=== PATIENT | female | born 1955 | race Caucasian/White ===

== ENCOUNTER 2023-02-01 13:07 | Observation (INO) | payer MEDICARE, SELFPAY ==
[2023-02-01] VITALS (47 sets, daily range): BP systolic 110–169; BP diastolic 72–108; PULSE 71–104; RESP 13–30; TEMP 36.7; O2SAT 95–99; BMI 42.9
--- NOTE | 2023-02-01 11:52 | XACV_ITS ---
Exam Room: 2 Ht: 155 cm Wt: 104 kg BSA: 2.18 m2 Gender: Female : 1955 Any Known Allergies: No known allergies Exam Priority: Routine Procedure(s): Procedure Description: Diagnostic procedure Procedure Description: PCI procedure Procedure Description: Left Heart Catheterization Procedure Description: Left ventriculography Procedure Description: Drug Eluting Coronary Stent Procedure Description: PTCA Procedure Description: Coronary Angiography Phani SCOTT; Diagnostic Cath Status: Emergency Diagnostic Findings * Patient has been having off-and-on symptoms for about 18 hours. This included pressure in the upper chest and shortness of breath. [facility] with inferior ST segment elevation. Was transferred here. * Angiography revealed the right coronary artery to be closed just past the ostium. Once the artery was opened there was a lesion of about 80% in the midportion. Otherwise diffuse luminal irregularities. There is a 10 to 15% stenosis of the proximal first obtuse marginal branch. Otherwise the circumflex is normal. There is a 40% stenosis of the mid LAD. Otherwise the LAD is free of disease.. PCI Status: Emergency PCI LVEF Assessed: Yes Interventional Findings * A wire was placed through the occlusion. Once the artery was opened, angiography revealed a 80% stenosis in the mid vessel. This was stented first using a 3.5 x 12 mm drug-eluting stent. Attention was then turned to the occluded area. This is in the very proximal right coronary artery. This was then primarily stented with a 3.5 x 15 mm stent. The end result was excellent. Decision for PCI with Surgical Consult: No PCI for Multi-vessel Disease: No Conclusions 1. Occluded right coronary artery with stenting of the mid vessel and the proximal vessel. Otherwise no significant coronary artery disease. Minimal left ventricular dysfunction. Recommendations * Medical therapy. Interventional RX Recommendation: PCI w/o planned CABG Diagnostic RX Recommendation: PCI w/o planned CABG Anticoagulation: Heparin Ventriculography Ejection Fraction: 55.0 % Pressures Phase:Rest AO : 131 / 82 ( 101 ) @ 1:04:00 PM 159 / 74 ( 102 ) @ 1:22:00 PM 133 / 72 ( 98 ) @ 1:28:00 PM 133 / 73 ( 98 ) @ 1:28:00 PM LV : 150 / -14 / 8 @ 1:27:00 PM 143 / -9 / 11 @ 1:28:00 PM 143 / -6 / 14 @ 1:28:00 PM Valves Phase:DefaultPhase AV : 11.0 @ 12:36:34 PM 11.0 @ 12:36:34 PM AV Mean Gradient: 23.0 @ 12:36:34 PM 23.0 @ 12:36:34 PM Clinical Evaluation EBL: 5mL-10mL Procedural Details Pre-Procedure Time Out. Identified patient by full name and date of as verbalized by the patient/guarantor. Does the consent match the physician's order: N/A Emergent; Informed Consent not obtained due to time critical life threat. Accurate & Complete Informed Consent: N/A Emergent; Informed Consent not obtained due to time critical life threat. Inpatient/Outpatient History & Physical on Chart: N/A Emergent; Informed Consent not obtained due to time critical life threat. If H&P is completed, is and addenduem needed: N/A Emergent; Informed Consent not obtained due to time critical life threat; If yes, is the addendum complete: N/A Emergent; Informed Consent not obtained due to time critical life threat. Visualize and Verify Site with Patient/Guarantor: N/A. Relevant Radiology Images available: N/A Emergent. The risks, benefits, and alternatives of sedation and/or procedure were discussed by physician. The patient agrees to continue. Procedure started. [facility] Clinical Fraility Score: 3: Managing Well. Home Care Physical Therapist Indications: ACS <= 24 hours. Chest Pain Symptom Assessment: Typical Angina Symptoms. Correct patient, site and procedure confirmed by cath team. Current diagnosis: STEMI. PERRLA. 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 Lungs clear x 5 lobes. IV Site on Arrival: 18 gauge in the right anticubital. IV Site on Arrival: 18 gauge in the left anticubital. IV Fluids: 0.9% NaCl at 75ml/hr. 0 mL infused prior to labor contract analyst. Pre Procedural Pulses: bilateral radial was 3+. Oxygen started at 2liters/min via nasal canula. right radial was prepped with chloroprep then draped in the usual sterile fashion. right groin was prepped with chloroprep then draped in the usual sterile fashion. Physician notified. Baseline sample Acquired. HR: 104 BPM. Physician arrived. Physician scrubbed in. Immediate Pre-Procedure Time Out. Correct Patient: Yes; Correct Procedure: Yes; Correct Site: Yes; Correct Patient Position: Yes; Correct Supplies: No; Dried Flammable Prep: Yes; Blood Products Available: No;. Admit Source: Emergency department. Lidocaine 1% infiltrated to the right radial. Arterial access obtained. 6 luxembourger JR 4 guide catheter was inserted over the wire. Multiple views taken of right coronary artery. Sedgwick guidewire was advanced through the guide catheter to lesion in the prox RCA. Guidewire advanced across lesion. Inflation number : 1 A AB TREK 3.50X20 RX BALLOON was prepped and advanced across the Prox RCA , then inflated to 12 DONALDO for 0:30 seconds. Balloon out. Balloon inserted to lesion in the prox RCA. Stent inserted to lesion in the mid RCA. Inflation Number : 1 A HAI R CELI 3.5X12 MARISEL -Lot Number# [id number] EXP 09-21-24 was prepped and advanced across the Mid RCA. The stent was deployed at 12 DONALDO for 0:31 seconds. Stent balloon out over wire. Angiography performed, checking results. Stent inserted to lesion in the prox RCA. Inflation Number : 1 A HAI R CELI 3.5X15 MARISEL -Lot Number# [id number] EXP 03-30-24 was prepped and advanced across the Prox RCA1. The stent was deployed at 16 DONALDO for 0:33 seconds. Stent balloon out over wire. Wire out. Guide catheter out over exchange wire. A 5 luxembourger TIG catheter in over wire. Multiple views taken of left coronary artery. Catheter removed over the exchange wire. A 5 luxembourger Angled Pig catheter in over wire. Catheter crossed aortic valve. EDP Sample taken: LV 150/-15,8; HR: 96 BPM; SpO2: 98%. LV gram performed in BUSTILLOS @ 10 mL/second for a total of 30 mL. EDP Sample taken: LV 143/-10,11; HR: 94 BPM; SpO2: 98%. Pullback taken: LV 143/-7,14; AO 133/72(98); Mean: 23mmHg, Peak to Peak: 11mmHg, SEP: 10sec/min; HR: 95 BPM; SpO2: 99%. Catheter removed over the exchange wire. Post Procedure: Pulses reassessed and unchanged. PERRLA. 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 No VTE prophylaxis required. A TR Band was successful obtaining hemostatsis at the Right Radial artery insertion site. Medication's Wasted: Heparin = 1000 units. Medication's Wasted: Nitro = 49.8 mg. Medication's Wasted: Lidocaine 1% = 3 mL. Total IV fluids: 81 mL. PCI Indication: STEMI. Post-op diagnosis: Acute inferior wall RI. Complications: None. Estimated blood loss: 5mL-10mL. Responsiveness - Normal response to verbal stimuli; alert and oriented, PERRLA. Airway - Unaffected, no intervention required; spontaneous ventilation. Circulation: W/N/L, pulses unchanged. Nausea/Vomiting: No. Procedure completed. Patient transferred by wheelchair to ICU. Vital chart was stopped. Access Site Site: Right Radial artery Sheath Size: 6 Fr Hemostasis Method: TR Band Hemostasis Success: Successful Procedure Medications Start: 11:58 AM Stop: 11:58 AM Medication: Versed Amount: 1 mg Route: I.V. Start: 11:58 AM Stop: 11:58 AM Medication: Fentanyl Amount: 50 mcg Route: I.V. Start: 12:02 PM Stop: 12:02 PM Medication: Nitrogylcerin Amount: 200 mcg Route: I.A. Start: 12:05 PM Stop: 12:05 PM Medication: Versed Amount: 1 mg Route: I.V. Start: 12:09 PM Stop: 12:09 PM Medication: Versed 1 mg and Fentanyl 25 mcg Start: 12:14 PM Stop: 12:14 PM Medication: Versed Amount: 1 mg Route: I.V. Start: 12:15 PM Stop: 12:15 PM Medication: Fentanyl Amount: 25 mcg Route: I.V. Start: 12:21 PM Stop: 12:21 PM Medication: Versed Amount: 1 mg Route: I.V. Start: 12:22 PM Stop: 12:22 PM Medication: Versed Amount: 1 mg Route: I.V. Start: 12:32 PM Stop: 12:32 PM Medication: Aspirin Amount: 324 mg Route: P.O. I, the attending physician, have reviewed and verified all procedure medications. Yes, all medications given per verbal order Report Signatures Finalized by Dr. Delfin Jeronimo MD on 02/01/2023 01:07 PM
--- NOTE | 2023-02-01 12:53 | ECG_ITS ---
[facility] Test Date: 2023-02-01 Pat Name: Denita Laurent Department: Room: [facility] Gender: Female Field Consultant: : 1955 Requested By: Delfin Jeronimo Order Number: [id number] Calderon MD: Meño Cruz M.D. Measurements Intervals [place] Rate: 96 P: 38 [place]: 186 QRS: -3 QRSD: 93 T: 6 QT: 367 QTc: 465 Interpretive Statements SINUS RHYTHM No previous ECG available for comparison Electronically Signed On 02-01-2023 20:40:45 CDT by Meño Cruz M.D. [id number]
--- NOTE | 2023-02-01 12:54 | PM.HP ---
Providers/Chief Complaint Admitting Physician: Delfin Jeronimo MD Chief Complaint: Stemi Alert History of Present Illness Denita Laurent is a 67 year old female without any prior history of heart disease. She has a history of obesity and hypertension. She quit smoking several years ago. She was in [place] yesterday walking around the mall and noticed some discomfort in her upper chest near her neck. This was associated with shortness of breath but no other symptoms. It persisted off and on after she stopped. She came home last evening and then it recurred this morning. She went to [facility] in [place] where her EKG suggested inferior ST elevation. There she was given 600 mg of Plavix and 4000 units of heparin. She was started on a heparin drip and transferred here. We took her straight to the cardiac catheterization laboratory rather than stopping in the emergency room. No labs were sent with the patient from the originating hospital other than the EKG. Review of Systems Narrative: The review of systems is negative. PFSH Acute PFSH: Medical History (Updated 02/01/23 @ 12:59 by Delfin Jeronimo MD) Acute transmural inferior wall SC CAD (coronary artery disease) Essential hypertension Morbid obesity Surgical History (Updated 02/01/23 @ 12:59 by Delfin Jeronimo MD) S/P coronary artery stent placement Physical Exam Narrative: GENERAL: Morbidly obese female in some distress HEENT: Exam within normal limits. NECK: Supple without jugular vein distention. The carotid upstroke is normal without bruits. BACK: Exam normal. LUNGS: Clear. HEART: Regular rate and rhythm. ABDOMEN: Benign without organomegaly or tenderness. EXTREMITIES: No edema. NEUROLOGIC: Exam normal. SKIN: Unremarkable. A&P Assessment and plan (1) Acute transmural inferior wall SC: (2) Morbid obesity: (3) Essential hypertension: (4) CAD (coronary artery disease): (5) S/P coronary artery stent placement: Plan For subacute inferior wall SC. I suspect a right coronary artery lesion. We will perform catheterization immediately. Attestations Medical Necessity Statement*: Hospitalization for acute inferior wall myocardial infarction and High Time for a total of 60 minutes, includes reviewing past or interval history, examining/interviewing patient, placing orders, counseling patient/family/other support, updating patient/family/other support, discussing plan of care with staff, communicating with other healthcare providers, documenting encounter and coordinating care Diagnoses Acute transmural inferior wall SC I21.19 Morbid obesity E66.01 Essential hypertension I10 CAD (coronary artery disease) I25.10 S/P coronary artery stent placement Z95.5
[2023-02-01] MEDS: sodium chloride 0.9% 1,000 ML 100 ML IV ×2 (13:23→21:28)
[2023-02-01] MEDS: metoprolol tartrate 25 mg Tablet PO ×2 (13:27→21:29)
--- NOTE | 2023-02-01 14:01 | PC.NURSE ---
Patient arrived to ICU from cardiac cath tech via direct admit at approximately 1307
--- NOTE | 2023-02-01 14:52 | ECG_ITS ---
[facility] Test Date: 2023-02-01 Pat Name: Denita Laurent Department: Room: [facility] Gender: Female Valve Setter: : 1955 Requested By: Delfin Jeronimo Order Number: [id number] Kvng MD: Meño Cruz M.D. Measurements Intervals [place] Rate: 76 P: 53 MT: 203 QRS: 3 QRSD: 82 T: -7 QT: 386 QTc: 435 Interpretive Statements SINUS RHYTHM Compared to ECG 02/01/2023 13:17:00 No significant changes Electronically Signed On 02-01-2023 20:43:46 CDT by Meño Cruz M.D. [email or web address] Millsh. c. watkins memorial hospitalTakeda Cambridgemercy health urbana hospitalSo1/store/OM/[id number]
[2023-02-01 15:06] LABS: Troponin(5th) Baseline 210 ng/L (0-10)
[2023-02-01 17:13] LABS: Troponin 5 2HR 381.9 ng/L (0-10)
[2023-02-01 17:14] LABS: Troponin 5 2HR Delta 171.9 ABS# (0-10)
--- NOTE | 2023-02-01 17:53 | PC.NURSE ---
TR band off approximately 1630. Site clean dry and intact, no s/s of bleeding.
--- NOTE | 2023-02-01 18:21 | ECG_ITS ---
[facility] Test Date: 2023-02-01 Pat Name: Denita Laurent Department: Room: [facility] Gender: Female Forensic Psychiatrist: : 1955 Requested By: Delfin Jeronimo Order Number: [id number] Kvng MD: Meño Cruz M.D. Measurements Intervals [place] Rate: 91 P: 43 ID: 208 QRS: -12 QRSD: 85 T: 11 QT: 371 QTc: 459 Interpretive Statements SINUS RHYTHM Compared to ECG 02/01/2023 14:40:46 No significant changes Electronically Signed On 02-01-2023 20:42:10 CDT by Meño Cruz M.D. [email or web address].[email or web address] health centralNubimetricsuniversity hospitals [facility].[employer]/store/OM/[id number]
[2023-02-01 20:25] LABS: Troponin 5 6HR 662.3 ng/L (0-10); Troponin 5 6HR Delta 452.3 ng/L (0-12)
[2023-02-02] VITALS (34 sets, daily range): BP systolic 114–146; BP diastolic 67–95; PULSE 69–91; RESP 12–35; TEMP 36.4–36.7; O2SAT 94–99
[2023-02-02] MEDS: acetaminophen 325 mg Tablet 650 MG PO (00:59)
[2023-02-02 04:56] LABS: Basophils # 0.1 10^3/uL (0.0-0.1); Basophils % 0.4 %; Eosinophils # 0.4 10^3/uL (0.0-0.8); Eosinophils % 3.2 %; Hematocrit 29.2 % (37.0-47.0); Hemoglobin 8.2 g/dL (11.5-15.3); Lymphocytes # 3.4 10^3/uL (0.8-4.8); Lymphocytes % 28.5 %; Mean Corpuscular HGB Conc 28.1 g/dL (30.0-36.0); Mean Corpuscular Hemoglobin 18.5 pg (28.0-34.0); Mean Corpuscular Volume 65.9 fl (81-99); Mean Platelet Volume 9.8 fL (7.4-10.4); Monocytes # 1.1 10^3/uL (0.2-0.9); Neutrophils # 6.83 10^3/uL (1.8-7.7); Neutrophils % 58.3 %; Nucleated Red Blood Cells % 0 %; Platelet Count 440 10^3/cmm (130-400); Red Blood Count 4.43 10^6/uL (4.1-5.3); Red Cell Distribution Width 18.6 % (12.1-15.1); White Blood Count 11.7 10^3/uL (4.0-10.0)
[2023-02-02 05:19] LABS: Anion Gap 16.1 (5-19); Blood Urea Nitrogen 12 mg/dL (8-23); Calcium 9.2 mg/dL (8.5-10.5); Carbon Dioxide 22 mmol/L (22-29); Chloride 104 mmol/L (98-107); Glomerular Filtration Rate 83.7 mL/min (90-130); Glucose 98 mg/dL (65-115); Osmolality Calculated 286 mOsm/kg (285-295); Potassium 4.1 mmol/L (3.5-5.1); Sodium 138 mmol/L (136-145)
--- NOTE | 2023-02-02 08:01 | P.DS_ITS ---
Discharge Providers Date of Admission: 02/01/23 13:07 Date of Discharge: February 02, 2023 Attending Provider at Admission: Delfin Jeronimo MD Attending Provider at Discharge: Delfin Jeronimo MD Primary Care Provider: Swetha Kwan MD Diagnoses at Discharge Discharge Diagnosis (1) Acute transmural inferior wall AK: Status: Acute (2) Morbid obesity: Status: Acute (3) Essential hypertension: Status: Acute (4) CAD (coronary artery disease): Status: Acute (5) S/P coronary artery stent placement: Status: Acute Reason for Visit Reason for Visit: Stemi Alert Brief History: Patient arrived to the emergency room as a STEMI alert. EKG suggested ST elevation inferiorly. She came from [facility] in [place]. Please see the H&P for details. Hospital Course Hospital Course Patient was taken to the cardiac catheterization laboratory immediately. Her right coronary artery was occluded. She had a 80% mid right coronary artery lesion which was stented first after the closure lesion in the ostium underwent balloon angioplasty. Secondly, the proximal vessel was stented. There was a mild amount of thrombus. The artery was a large dominant vessel. She had a brief episode of bradycardia which resolved spontaneously. The left coronary arteries were essentially normal. There was a minimal narrowing in the first obtuse marginal branch. Left ventriculography revealed very minimal mid inferior wall hypokinesis. Ejection fraction however was about 55%. There were no complications. The procedure was done from the right radial artery. She had no arrhythmias and no problems overnight. The ST segments on EKG normalized however she did develop Q waves inferiorly.Patient's white blood cell count is 11.7. Her hemoglobin hematocrit are 8.2 and 29.2. The initial troponin was 210, second troponin 382 and the third troponin 452. Physical Exam Narrative: GENERAL: In general she looks and feels well the day after the procedure HEENT: Exam within normal limits. NECK: Supple without jugular vein distention. The carotid upstroke is normal without bruits. BACK: Exam normal. LUNGS: Clear. HEART: Regular rate and rhythm. ABDOMEN: Benign without organomegaly or tenderness. EXTREMITIES: No edema. The right radial artery entry site is flat, dry without hematoma or vascular anomaly. NEUROLOGIC: Exam normal. SKIN: Unremarkable. Discharge Data Studies Completed and Pending Completed Studies During Hospitalization Category Date Time Status CERTIFIED PEST CONTROL TECHNICIAN request for service Routine Exams 02/01/23 11:52 Completed Laboratory Results WBC 11.7 10^3/uL (4.0-10.0) H 02/02/23 04: RBC 4.43 10^6/uL (4.1-5.3) 02/02/23 04: Hgb 8.2 g/dL (11.5-15.3) L 02/02/23 04: Hct 29.2 % (37.0-47.0) L 02/02/23 04: MCV 65.9 fl (81-99) L 02/02/23 04: MCH 18.5 pg (28.0-34.0) L 02/02/23 04: MCHC 28.1 g/dL (30.0-36.0) L 02/02/23 04: RDW 18.6 % (12.1-15.1) H 02/02/23 04: Plt Count 440 10^3/cmm (130-400) H 02/02/23 04: MPV 9.8 fL (7.4-10.4) 02/02/23 04: Neut % (Auto) 58.3 % 02/02/23 04: Lymph % (Auto) 28.5 % 02/02/23 04: [place] % (Auto) 9.0 % 02/02/23 04: Eos % (Auto) 3.2 % 02/02/23 04: Baso % (Auto) 0.4 % 02/02/23 04: Neut # (Auto) 6.83 10^3/uL (1.8-7.7) 02/02/23 04: Lymph # (Auto) 3.4 10^3/uL (0.8-4.8) 02/02/23 04: [place] # (Auto) 1.1 10^3/uL (0.2-0.9) H 02/02/23 04: Eos # (Auto) 0.4 10^3/uL (0.0-0.8) 02/02/23 04: Baso # (Auto) 0.1 10^3/uL (0.0-0.1) 02/02/23 04: Nucleated RBC % (auto) 0 % 02/02/23 04:26 Nucleated RBCs # 0.0 /100WBC 02/02/23 04:26 Sodium 138 mmol/L (136-145) 02/02/23 04:26 Potassium 4.1 mmol/L (3.5-5.1) 02/02/23 04:26 Chloride 104 mmol/L (98-107) 02/02/23 04:26 Carbon Dioxide 22 mmol/L (22-29) 02/02/23 04: Anion Gap 16.1 (5-19) 02/02/23 04: BUN 12 mg/dL (8-23) 02/02/23 04:26 Creatinine 0.7 mg/dL (0.5-0.9) 02/02/23 04:26 GFR Calculation 83.7 mL/min (90-130) L 02/02/23 04:26 Glucose 98 mg/dL (65-115) 02/02/23 04:26 Calculated Osmolality 286 mOsm/kg (285-295) 02/02/23 04: Calcium 9.2 mg/dL (8.5-10.5) 02/02/23 04:26 Troponin T Baseline 210 ng/L (0-10) H* 02/01/23 14:15 Troponin T 120 Minute 381.9 ng/L (0-10) H 02/01/23 16:25 Delta Troponin T 171.9 ABS# (0-10) H* 02/01/23 16:25 Troponin T Hi Sens 6Hr 662.3 ng/L (0-10) H 02/01/23 19:45 Troponin T Hi Sens 6Hr Delta 452.3 ng/L (0-12) H* 02/01/23 19:45 Procedures Performed Left heart catheterization, coronary angiography, left ventriculography, angioplasty and stent of the right coronary artery. Vitals Last Vital Signs Temp 97.6 F 02/02/23 05:00 Pulse 80 02/02/23 06:15 Resp 17 02/02/23 06:15 BP 121/67 02/02/23 06:15 Pulse Ox 99 02/02/23 06:00 O2 Del Method Room Air 02/02/23 06:00 Discharge Plan Discharge Patient Disposition: Home Condition: Stable Prescriptions: New nitroglycerin 0.4 mg Tablet, Sublingual 0.4 mg sublingual Q5M PRN (Reason: Chest Pain) Qty: 25 3RF aspirin 81 mg Tablet,Delayed Release (Dr/Ec) 81 mg PO DAILY Qty: 100 3RF clopidogrel 75 mg Tablet 75 mg PO DAILY Qty: 90 3RF metoprolol tartrate 25 mg Tablet 25 mg PO BID@0900,2100 Qty: 180 3RF Discharge Orders: Discharge Order (Routine); Ordered 02/02/23 Ordered By: Delfin Jeronimo Referrals: Delfin Jeronimo MD [Physician] - 3 months Swetha Kwan MD [Primary Care Provider] - Leila Noriega FNP [Nurse Practitioner] - 7-10 days (Right radial artery check and chemistry panel.) Discharge Diet: Usual diet and Cardiac Discharge Activity: Increase activity as tolerated and Limit activity as instructed Patient Instructions: Opioid Safety Activity Restrictions/Additional Instructions: No lifting over 5 pounds with the right arm for 2 days Discharge Attestations Time Spent in Discharge Care*: greater than 30 min Quality Metrics Clinical Quality Measures [ Acute Myocardial Infaction { Clinical Trial Participant: No; Contraindication to aspirin: None; Aspirin prescribed; Contraindication to statin: Adverse reaction to drug;}] Coding Level of Care Code 78879 Total time (in minutes) for Discharge: 35 Diagnoses Acute transmural inferior wall AK I21.19 Morbid obesity E66.01 Essential hypertension I10 CAD (coronary artery disease) I25.10 S/P coronary artery stent placement Z95.5
[2023-02-02] MEDS: aspirin 81 mg EC Tablet PO (08:27)
[2023-02-02] MEDS: clopidogrel 75 mg Tablet PO (08:27)
[2023-02-02] MEDS: metoprolol tartrate 25 mg Tablet PO (08:27)
--- NOTE | 2023-02-02 08:59 | PC.NURSE ---
Dr. Jeronimo rounded this morning, patient received discharge orders, all IVs removed, prescriptions sent to patients preferred pharmacy. All medications and discharge instructions and activity restrictions explained to patient who verbalized understanding.
--- NOTE | 2023-02-02 10:08 | ECG_ITS ---
[facility] Test Date: 2023-02-02 Pat Name: Denita Laurent Department: Room: [facility] Gender: Female Full Stack Software Engineer: : 1955 Requested By: Delfin Jeronimo Order Number: [id number] Kvng MD: Meño Cruz M.D. Measurements Intervals [place] Rate: 75 P: 27 MN: 185 QRS: -17 QRSD: 82 T: -23 QT: 380 QTc: 426 Interpretive Statements SINUS RHYTHM MINIMAL VOLTAGE CRITERIA FOR LVH, CONSIDER NORMAL VARIANT [MEETS CRITERIA IN ONE OF: R(aVL), S(V1), R(V5), R(V5/V6)+S(V1)] INFERIOR MYOCARDIAL INFARCTION , OF INDETERMINATE AGE [40+ ms Q WAVE AND/OR ST/T ABNORMALITY IN II/aVF] Compared to ECG 02/01/2023 18:21:00 Myocardial infarct finding now present Electronically Signed On 02-02-2023 11:02:36 CDT by Meño Cruz M.D. [email or web address].[email or web address]/store/[id number]
--- NOTE | 2023-02-02 10:18 | PC.NURSE ---
Patient taken via w/c to main exit with staff at 1016.
== END 2023-02-02 10:16 | disposition home or self-care (01) ==
LOC: ICU 14:46
PROVIDERS: Admitting Provider Internal Medicine Cardiovascular Disease; PCP Family Medicine; Visit Provider Internal Medicine Cardiovascular Disease
DX: I21.19 ST elevation (STEMI) myocardial infarction involving other coronary artery of inferior wall (principal); I25.10 Atherosclerotic heart disease of native coronary artery without angina pectoris; I10 Essential (primary) hypertension; E66.01 Morbid (severe) obesity due to excess calories; Z68.41 Body mass index [BMI] 40.0-44.9, adult; Z95.5 Presence of coronary angioplasty implant and graft
CPT/HCPCS: 36415; 80048; 84484; 85025; 93005; 93458; 96365; 99152; 99153; C1725; C1769; C1874; C1887; C1894; C9600; G0378; J0461; J2250; J3010; J3490; J7030; Q9967

== ENCOUNTER → 2023-02-11 11:03 | Outpatient (BNVA) | payer MEDICARE, SELFPAY | PROVIDERS: PCP Family Medicine; Visit Provider Nurse Practitioner Family | DX: I25.10 Atherosclerotic heart disease of native coronary artery without angina pectoris (principal); Z95.5 Presence of coronary angioplasty implant and graft; I10 Essential (primary) hypertension; Z79.82 Long term (current) use of aspirin | CPT/HCPCS: 36415; 80048; 99214 ==

== ENCOUNTER → 2023-04-15 11:28 | Outpatient (BNVA) | payer MEDICARE, SELFPAY | PROVIDERS: PCP Family Medicine; Visit Provider Internal Medicine Cardiovascular Disease | DX: I25.10 Atherosclerotic heart disease of native coronary artery without angina pectoris (principal); Z95.5 Presence of coronary angioplasty implant and graft; I10 Essential (primary) hypertension; E66.01 Morbid (severe) obesity due to excess calories; I25.2 Old myocardial infarction; Z68.41 Body mass index [BMI] 40.0-44.9, adult | CPT/HCPCS: 99213 ==

== ENCOUNTER → 2023-11-17 14:02 | Outpatient (BNVA) | payer MEDICARE, SELFPAY | PROVIDERS: PCP Family Medicine; Visit Provider Nurse Practitioner Family | DX: I25.10 Atherosclerotic heart disease of native coronary artery without angina pectoris (principal); Z95.5 Presence of coronary angioplasty implant and graft; I10 Essential (primary) hypertension; I25.2 Old myocardial infarction | CPT/HCPCS: 99214 ==

== ENCOUNTER 2023-11-25 14:06 | Outpatient (CLI) | payer MEDICARE, SELFPAY ==
--- NOTE | 2023-11-25 14:30 | USCV_ITS ---
Denita Laurent Age: 68 Gender: F : 1955 Exam Date: 11/25/2023 15:04 Ordering Phys: Leila Noriega Technologist: TINO Exam Location: [facility] Indication: WEAKNESS BP: 130 / 62 HR: 69 Rhythm: Sinus Technical Quality: Adequate MEASUREMENTS (Male / Female) Normal Values 2D ECHO LV Diastolic Diameter PLAX 4.2 cm 4.2 - 5.9 / 3.9 - 5.3 cm IVS Diastolic Thickness 1.0 cm 0.6 - 1.0 / 0.6 - 0.9 cm IVS Systolic Thickness 1.7 cm LVPW Diastolic Thickness 1.7 cm 0.6 - 1.0 / 0.6 - 0.9 cm LVPW Systolic Thickness 2.0 cm LVOT Diameter 2.5 cm LV Ejection Fraction 2D Teich 42.9 % LV Ejection Fraction MOD 2C 55.2 % Aorta at Sinotubular Diameter 2.0 cm IVC Diameter 1.5 cm M-MODE LA Ao Ratio MM 1.3 AV Cusp Separation MM 1.3 cm DOPPLER AV Peak Velocity 201.0 cm/s AV Area Cont Eq vti 3.5 cm squared MV Area PHT 3.0 cm squared Mitral E to A Ratio 0.9 TV Peak Velocity 166.0 cm/s TR Peak Velocity 166.0 cm/s TR Peak Gradient 11.0 mmHg Right Atrial Pressure 3.0 mmHg Pulmonary Artery Systolic Pressu 14.0 mmHg PV Peak Velocity 107.0 cm/s FINDINGS Left Ventricle Normal left ventricular size, systolic function and wall thickness, with no regional wall motion abnormalities. Grade I/IV diastolic dysfunction (abnormal relaxation filling pattern), normal to mildly elevated filling pressures. Left ventricular ejection fraction is estimated at 60 %. Right Ventricle Normal right ventricular size and systolic function. Normal right ventricular systolic pressure. Right Atrium The right atrium is normal in size. Left Atrium Mildly increased left atrial size. Mitral Valve Structurally normal mitral valve. Trace mitral valve regurgitation. Aortic Valve Structurally normal aortic valve without significant sclerosis or stenosis. There is no aortic regurgitation. Tricuspid Valve Structurally normal tricuspid valve without significant stenosis or regurgitation. Pulmonary artery systolic pressure is normal. Pulmonic Valve Pulmonic valve not well visualized. Pericardium Normal pericardium without effusion. Aorta Normal ascending aorta dimension. IVC The inferior vena cava appears normal. CONCLUSIONS Normal left ventricular size, systolic function and wall thickness, with no regional wall motion abnormalities. Grade I/IV diastolic dysfunction (abnormal relaxation filling pattern), normal to mildly elevated filling pressures. Left ventricular ejection fraction is estimated at 60 %. Structurally normal mitral valve. Trace mitral valve regurgitation. There are no prior echocardiogram studies to compare. Dr. Delfin Jeronimo MD (Electronically Signed) Final Date: 26 November 2023 07:37 S
== END 2023-11-25 14:07 | disposition home or self-care (01) ==
LOC: RAD 14:08
PROVIDERS: PCP Family Medicine; Visit Provider Nurse Practitioner Family
DX: I21.19 ST elevation (STEMI) myocardial infarction involving other coronary artery of inferior wall (principal); I25.10 Atherosclerotic heart disease of native coronary artery without angina pectoris; Z95.5 Presence of coronary angioplasty implant and graft
CPT/HCPCS: 93306

== ENCOUNTER → 2024-03-28 12:46 | Outpatient (BNVA) | payer MEDICARE, SELFPAY | PROVIDERS: PCP Family Medicine; Visit Provider Internal Medicine Cardiovascular Disease | DX: I10 Essential (primary) hypertension (principal); I25.10 Atherosclerotic heart disease of native coronary artery without angina pectoris; Z95.5 Presence of coronary angioplasty implant and graft; E66.01 Morbid (severe) obesity due to excess calories; Z68.41 Body mass index [BMI] 40.0-44.9, adult; I25.2 Old myocardial infarction; Z87.891 Personal history of nicotine dependence | CPT/HCPCS: 99213 ==

== ENCOUNTER → 2024-09-10 12:58 | Outpatient (BNVA) | payer MEDICARE, SELFPAY | PROVIDERS: PCP Family Medicine; Visit Provider Internal Medicine Cardiovascular Disease | DX: I25.10 Atherosclerotic heart disease of native coronary artery without angina pectoris (principal); I10 Essential (primary) hypertension; I25.2 Old myocardial infarction; Z87.891 Personal history of nicotine dependence | CPT/HCPCS: 99213 ==